=== PATIENT | male | born 1970 | race Caucasian/White ===

== ENCOUNTER 2022-07-16 18:51 | Emergency (ER) | payer OTHER ==
[2022-07-16] MEDS ORDERED: Sodium Chloride 0.9% 1,000 ML IV STA (19:40)
[2022-07-16] MEDS ORDERED: Prochlorperazine 10 MG in Sodium Chloride 0.9% 50 ML IV ONE (19:41)
[2022-07-16] MEDS ORDERED: diphenhydrAMINE 50 MG/ML SDV IVPUSH ONE (19:42)
[2022-07-16] MEDS ORDERED: Morphine 2 MG/ML SYRINGE IVPUSH ONE (20:48)
[2022-07-16] MEDS ORDERED: Acetaminophen 325 MG Tab PO ONE (20:48)
== END 2022-07-16 21:45 | disposition home or self-care (01) ==
LOC: JD.ED 18:51
DX: G43.909 Migraine, unspecified, not intractable, without status migrainosus (principal); Z87.891 Personal history of nicotine dependence; Z88.5 Allergy status to narcotic agent
CPT/HCPCS: 96361; 96365; 96375; 99283; A9270; J0780; J1200; J2270; J7030